=== PATIENT | female | born 2000 | race African-American/Black ===

== ENCOUNTER 2022-04-13 09:18 | Emergency (ER) | payer OTHER ==
[~2022-04-13] VITALS: Ht 157.5 cm; Wt 64.1 kg
[2022-04-13 09:20] VITALS: BP 109/60
[2022-04-13] MEDS ORDERED: PRENCHW PO (09:34)
[2022-04-13] MEDS ORDERED: ACETAMINOPHEN 325 MG TAB PO ONE (11:00)
[2022-04-13 11:11] LABS: RSV AMPLIFICATION NEGATIVE (NEGATIVE)
== END 2022-04-13 11:35 | disposition home or self-care (01) ==
LOC: M ED 09:18
DX: O98.512 Other viral diseases complicating pregnancy, second trimester (principal); B34.8 Other viral infections of unspecified site; Z20.822 Contact with and (suspected) exposure to COVID-19; Z3A.18 18 weeks gestation of pregnancy; Z79.810 Long term (current) use of selective estrogen receptor modulators (SERMs)

== ENCOUNTER 2022-07-06 07:10 | Emergency (ER) | payer OTHER ==
[~2022-07-06] VITALS: Ht 157.5 cm; Wt 77.8 kg
[~2022-07-06 07:10] MED LIST: PRENCHW PO
[2022-07-06] MEDS ORDERED: [UNRECOGNIZED DRUG - CODE] PO (09:09)
[2022-07-06 09:23] VITALS: BP 99/58
== END 2022-07-06 09:24 | disposition home or self-care (01) ==
LOC: M ED 07:10
DX: O98.519 Other viral diseases complicating pregnancy, unspecified trimester (principal); U07.1 COVID-19; Z3A.30 30 weeks gestation of pregnancy; Z79.810 Long term (current) use of selective estrogen receptor modulators (SERMs)

== ENCOUNTER 2022-09-12 06:57 | Inpatient (IN) | payer OTHER ==
[~2022-09-12] VITALS: Ht 157.5 cm; Wt 80.0 kg
[2022-09-12] VITALS (24 sets, daily range): BP systolic 109–155; BP diastolic 61–88
[~2022-09-12 06:57] MED LIST changes: +[UNRECOGNIZED DRUG - CODE] PO
[2022-09-12] MEDS ORDERED: HOME MED LIST COMPLETE! XX SCH (07:25)
[2022-09-12 10:25] LABS: HEMATOCRIT 32.7 % (36.0-47.0); HEMOGLOBIN 10.5 g/dl (12.0-15.5); MEAN CORPUSCULAR HEMOGLOBIN 29.1 pg (27.0-33.0); MEAN CORPUSCULAR HGB CONC 32.1 g/dl (32.0-36.5); MEAN CORPUSCULAR VOLUME 90.6 fl (80.0-96.0); PLATELET COUNT, AUTOMATED 324 10^3/uL (150-450); RED BLOOD COUNT 3.61 10^6/uL (4.00-5.40)
[2022-09-12] MEDS ORDERED: LACTATED RINGER'S 1000 ML IV STA (10:29)
[2022-09-12] MEDS ORDERED: TRANEXAMIC ACID INJection 1,000 MG in NS 100 ML IV PRN (10:30)
[2022-09-12] MEDS ORDERED: LIDOCAINE 1% MDV 20ML VIAL INFIL PRN (10:30)
[2022-09-12] MEDS ORDERED: CARBOPROST TROMETHAMINE 250 MCG/ML AMP IM PRN (10:30)
[2022-09-12] MEDS ORDERED: METHYLERGONOVINE MALEATE 0.2MG/ML 1ML VIAL IM PRN (10:30)
[2022-09-12] MEDS ORDERED: OXYTOCIN DRIP 30 UNITS in IV 1 EA IV PRN ×4 (10:30)
[2022-09-12] MEDS ORDERED: LR 1,000 ML IV SCH (10:30)
[2022-09-12] MEDS ORDERED: diphenhydrAMINE 50MG/ML VIAL IV PRN (20:10)
[2022-09-12] MEDS ORDERED: EPIDURAL/PCA KEYS XX PRN (20:10)
[2022-09-12] MEDS ORDERED: ePHEDrine SULFATE 25 MG/5 ML(5MG/ML) SYRINGE IVP PRN (20:10)
[2022-09-12] MEDS ORDERED: NALOXONE INJ 0.4MG/1ML VIAL IV PRN (20:10)
[2022-09-12] MEDS ORDERED: ONDANSETRON 4MG 2ML VIAL IV PRN (20:10)
[2022-09-12] MEDS ORDERED: LR 500 ML IV PRN (20:10)
[2022-09-12] MEDS: FENTANYL/ROPIVACAINE/NACL BAG 100 ML EPIDURAL SCH (20:39)
[2022-09-12] MEDS ORDERED: OXYTOCIN 30UNITS IN 0.9% NaCl 500ML IV BAG As Ordered ONE (22:19)
[2022-09-13] VITALS (27 sets, daily range): BP systolic 99–145; BP diastolic 52–90
[2022-09-13] MEDS ORDERED: OXYTOCIN DRIP 30 UNITS in IV 1 EA IV SCH ×5 (00:55→12:10)
[2022-09-13] MEDS: FENTANYL/ROPIVACAINE/NACL BAG 100 ML EPIDURAL SCH ×2 (02:16→09:14)
[2022-09-13] MEDS ORDERED: TERBUTALINE SULFATE 1 MG/ML 1ML VIAL As Ordered ONE (08:25)
[2022-09-13] MEDS ORDERED: D5W/0.45% SODIUM CHLORIDE 1,000 ML IV ONE (09:50)
[2022-09-13] MEDS ORDERED: AZITHROMYCIN INJ 500 MG, VIAL MATE ADAPTER 1 EACH in NS 250 ML IV ONE (10:55)
[2022-09-13] MEDS ORDERED: ceFAZolin SOD 2 GM in IV 1 EA IV ONE (10:55)
[2022-09-13] MEDS ORDERED: LIDOCAINE 2% W/EPINEPHRINE 20ML VIAL **PRES FREE As Ordered ONE (10:58)
[2022-09-13] MEDS ORDERED: MORPHINE PRES-FREE INJ 10 MG/10 ML VIAL As Ordered ONE (10:58)
[2022-09-13] MEDS ORDERED: OXYTOCIN 30UNITS IN 0.9% NaCl 500ML IV BAG As Ordered ONE ×2 (11:00→12:11)
[2022-09-13] MEDS ORDERED: ONDANSETRON 4MG 2ML VIAL As Ordered ONE (11:13)
[2022-09-13] MEDS ORDERED: KETAMINE HCL 200MG/20ML VIAL As Ordered ONE (11:20)
[2022-09-13] MEDS ORDERED: MIDAZOLAM INJ 2MG/2ML VIAL As Ordered ONE (11:22)
[2022-09-13] MEDS ORDERED: GLYCOPYRROLATE INJ 0.2 MG/ML 2 ML VIAL As Ordered ONE (11:29)
[2022-09-13] MEDS ORDERED: KETOROLAC 60MG 2ML VIAL As Ordered ONE (11:29)
[2022-09-13] MEDS ORDERED: ESMOLOL INJ 100MG/10ML VIAL As Ordered ONE (11:30)
[2022-09-13] MEDS ORDERED: ACETAMINOPHEN 1000MG 100ML IV BAG As Ordered ONE (11:30)
[2022-09-13] MEDS ORDERED: PHENYLephrine 500MCG 5ML (100MCG/ML) SYRINGE As Ordered ONE (11:32)
[2022-09-13] MEDS ORDERED: fentaNYL 100 MCG/2 ML INJECTION As Ordered ONE (11:35)
[2022-09-13] MEDS ORDERED: NALBUPHINE HCL 10 MG/ML 1ML AMP IV PRN (11:45)
[2022-09-13] MEDS ORDERED: **NOTE PATIENT COMMENT** MISC XX SCH (11:45)
[2022-09-13] MEDS ORDERED: MEPERIDINE 25 MG/ML 1ML VIAL IV PRN (11:45)
[2022-09-13] MEDS ORDERED: oxyCODONE 5MG TAB PO PRN ×3 (11:45→12:10)
[2022-09-13] MEDS ORDERED: ONDANSETRON 4MG 2ML VIAL IV PRN ×2 (11:45→12:10)
[2022-09-13] MEDS: SLF 3 ML SYR IV SCH ×2 (11:45→19:45)
[2022-09-13] MEDS ORDERED: traMADol 50 MG TAB PO ONE (11:45)
[2022-09-13] MEDS ORDERED: NALOXONE INJ 0.4MG/1ML VIAL IV PRN ×2 (11:45)
[2022-09-13] MEDS ORDERED: diphenhydrAMINE 50MG/ML VIAL IV PRN (11:45)
[2022-09-13 11:52] LABS: CORD GAS ABE A -10.5; CORD GAS ABE V -11.8; CORD GAS HCO3 A 20.5 MEQ/L; CORD GAS HCO3 V 16.8 MEQ/L; CORD GAS O2 SAT A 47.1 %; CORD GAS PCO2 A 69.2 mmHg; CORD GAS PCO2 V 47.7 mmHg; CORD GAS PH A 7.09 UNITS; CORD GAS PH V 7.164 UNITS; CORD GAS PO2 A 27.7 mmHg; CORD GAS PO2 V 25.6 mmHg; CORD GAS SBC A 15.2 MEQ/L; CORD GAS SBC V 14.4 MEQ/L; CORD GAS TCO2 A 22.6 MEQ/L; CORD GAS TCO2 V 18.2 MEQ/L
[2022-09-13] MEDS ORDERED: RHOGAM 300MCG (1500IU) INJ IM SCH (12:10)
[2022-09-13] MEDS ORDERED: MOM 30ML SUSPENSION UDC PO PRN (12:10)
[2022-09-13] MEDS ORDERED: MORPHINE 2 MG/ML 1ML VIAL IV PRN (12:10)
[2022-09-13] MEDS ORDERED: ACETAMINOPHEN TAB 650MG DOSE (2X325MG) PO PRN (12:10)
[2022-09-13] MEDS ORDERED: ANUSOL HC CREAM 30GM TOP PRN (12:10)
[2022-09-13] MEDS ORDERED: METHYLERGONOVINE MALEATE 0.2 MG TAB PO PRN (12:10)
[2022-09-13] MEDS: LR 1,000 ML IV SCH ×2 (16:19→20:26)
[2022-09-13] MEDS: KETOROLAC 30 MG/ML 1ML VIAL IV SCH ×2 (17:40→23:38)
[2022-09-13] MEDS: DOCUSATE SODIUM 100MG CAPSULE PO SCH (20:26)
[2022-09-14 02:00] VITALS: BP 103/49
[2022-09-14] MEDS: SLF 3 ML SYR IV SCH ×2 (03:45→06:19)
[2022-09-14] MEDS: LR 1,000 ML IV SCH (04:10)
[2022-09-14 06:00] VITALS: BP 101/58
[2022-09-14] MEDS: ACETAMINOPHEN 500 MG TAB PO PRN (06:20)
[2022-09-14] MEDS: KETOROLAC 30 MG/ML 1ML VIAL IV SCH (06:20)
[2022-09-14 06:49] LABS: HEMATOCRIT 25.1 % (36.0-47.0); MEAN CORPUSCULAR HGB CONC 32.3 g/dl (32.0-36.5); PLATELET COUNT, AUTOMATED 260 10^3/uL (150-450); RED BLOOD COUNT 2.79 10^6/uL (4.00-5.40); WHITE BLOOD COUNT 11.3 10^3/uL (4.0-10.0)
[2022-09-14 06:52] LABS: HEMOGLOBIN 8.1 g/dl (12.0-15.5)
[2022-09-14] MEDS: FERROUS SULFATE 325MG TAB PO SCH (09:56)
[2022-09-14] MEDS: DOCUSATE SODIUM 100MG CAPSULE PO SCH ×2 (09:56→21:03)
[2022-09-14] MEDS: PRENATAL VITAMINS CHEWABLE TABLET PO SCH (09:56)
[2022-09-14 10:00] VITALS: BP 113/65
[2022-09-14 14:00] VITALS: BP 119/70
[2022-09-14] MEDS: SIMETHICONE 80MG CHEW TAB PO PRN (14:37)
[2022-09-14] MEDS: IBUPROFEN 800 MG TAB PO SCH ×2 (14:38→21:03)
[2022-09-14 22:00] VITALS: BP 101/56
[2022-09-15 02:00] VITALS: BP 116/64
[2022-09-15] MEDS: IBUPROFEN 800 MG TAB PO SCH ×3 (05:44→21:28)
[2022-09-15 06:00] VITALS: BP 108/66
[2022-09-15] MEDS ORDERED: MEASLES,MUMPS,RUBELLA VACCINE INJ (MMR-II) SC.IMMUN ONE (09:00)
[2022-09-15 10:30] VITALS: BP 114/67
[2022-09-15] MEDS: FERROUS SULFATE 325MG TAB PO SCH (10:36)
[2022-09-15] MEDS: PRENATAL VITAMINS CHEWABLE TABLET PO SCH (10:36)
[2022-09-15] MEDS: DOCUSATE SODIUM 100MG CAPSULE PO SCH ×2 (10:36→21:28)
[2022-09-15] MEDS: ACETAMINOPHEN 500 MG TAB PO PRN ×2 (10:37→19:48)
[2022-09-15 19:57] VITALS: BP 111/67
[2022-09-16] MEDS: IBUPROFEN 800 MG TAB PO SCH (05:38)
[2022-09-16 06:09] VITALS: BP 125/82
[2022-09-16] MEDS: FERROUS SULFATE 325MG TAB PO SCH (08:36)
[2022-09-16] MEDS: DOCUSATE SODIUM 100MG CAPSULE PO SCH (08:36)
[2022-09-16] MEDS: PRENATAL VITAMINS CHEWABLE TABLET PO SCH (08:36)
[2022-09-16] MEDS: SIMETHICONE 80MG CHEW TAB PO PRN (09:56)
[2022-09-16] MEDS: ACETAMINOPHEN 500 MG TAB PO PRN (09:57)
== END 2022-09-16 12:55 | disposition home or self-care (01) | DRG 773 ==
LOC: M LDO 06:57 → M LDI 09:46 → M OBS 09-13 13:00
PROVIDERS: ADMIT Advanced Practice Midwife; ATTEND Obstetrics & Gynecology
PROC: 10D00Z1 Extraction of Products of Conception, Low, Open Approach (ICD-10-PCS; principal; 2022-09-13 10:59)
DX: O48.0 Post-term pregnancy (principal); Z37.0 Single live birth; Z3A.40 40 weeks gestation of pregnancy; O76 Abnormality in fetal heart rate and rhythm complicating labor and delivery; O63.1 Prolonged second stage (of labor)